=== PATIENT | male | born 1985 | race African-American/Black ===

== ENCOUNTER 2017-05-04 21:51 | Emergency (ER) | payer OTHER ==
[~2017-05-04] VITALS: Ht 175.3 cm; Wt 102.1 kg
[2017-05-04 21:52] VITALS: BP 161/102
[2017-05-04] MEDS ORDERED: PENICILLIN V P500 MG PO (22:12)
[2017-05-04] MEDS ORDERED: MOBIC15 MG PO (22:19)
== END 2017-05-04 22:28 | disposition home or self-care (01) ==
LOC: ER 21:51
DX: K02.9 Dental caries, unspecified (principal)

== ENCOUNTER 2017-05-21 22:57 | Emergency (ER) | payer OTHER ==
[~2017-05-21] VITALS: Ht 175.3 cm; Wt 103.4 kg
[~2017-05-21 22:57] MED LIST: MOBIC15 MG PO; PENICILLIN V P500 MG PO
[2017-05-21 23:04] VITALS: BP 134/91
[2017-05-21 23:17] LABS: URINE BILIRUBIN NEGATIVE (Negative); URINE BLOOD NEGATIVE (Negative); URINE COLOR YELLOW; URINE GLUCOSE-RANDOM* NEGATIVE (Negative); URINE KETONES NEGATIVE (Negative); URINE LEUKOCYTES-REFLEX NEGATIVE (Negative); URINE PROTEIN (DIPSTICK) NEGATIVE (Negative); URINE SPECIFIC GRAVITY >= 1.030 (1.003-1.035); URINE UROBILINOGEN 0.2 E.U./dl (0.2-1.0)
== END 2017-05-22 00:02 | disposition home or self-care (01) ==
LOC: ER 22:57
PROVIDERS: Emergency Medicine
DX: R35.0 Frequency of micturition (principal); F10.99 Alcohol use, unspecified with unspecified alcohol-induced disorder

== ENCOUNTER 2017-11-22 12:16 | Emergency (ER) | payer OTHER ==
[~2017-11-22] VITALS: Ht 175.3 cm; Wt 104.3 kg
[2017-11-22 12:31] VITALS: BP 143/78
[2017-11-22] MEDS ORDERED: NAPROSYN500 MG PO (12:31)
[2017-11-22] MEDS ORDERED: AMOXICILLIN 50500 MG PO (12:31)
== END 2017-11-22 18:06 | disposition home or self-care (01) ==
LOC: ER 12:16
DX: K02.9 Dental caries, unspecified (principal)